=== PATIENT | male | born 1975 | race Caucasian/White ===

== ENCOUNTER 2017-10-02 11:28 | Emergency (ER) | payer BC, OTHER ==
[~2017-10-02 11:28] MED LIST: CYCL-36 PO; LORT7.5T3 PO; SIMV5TAB32 PO
[2017-10-02 11:36] VITALS: BP 145/93; PULSE 93; RESP 18; TEMP 98.7; O2SAT 100
[2017-10-02] MEDS ORDERED: SODIUM CHLOR 0.9% 1000 ML INJ 1,000 ML IV SCH (11:55)
[2017-10-02] MEDS ORDERED: TETANUS/DIPHTHERIA TOXOID ADULT 0.5 ML VIAL IM ONE (12:00)
[2017-10-02] MEDS ORDERED: SODIUM CHLORIDE 0.9% FLUSH 10 ML FLUSH IV FLUSH PRN (12:00)
[2017-10-02] MEDS ORDERED: KETOROLAC TROMETHAMINE 30 MG/ML (IVP) VIAL IVP ONE (12:00)
[2017-10-02] MEDS ORDERED: PIPERACIL-TAZO 3.375 GM PREMIX 50 ML IV ONE (12:00)
[2017-10-02] MEDS ORDERED: IBUP1TAB7 PO (12:00)
[2017-10-02] MEDS ORDERED: AUGM875T3 PO (12:00)
--- NOTE | 2017-10-02 12:02 | PD ---
HPI Chief Complaint: Bite or Sting Time Seen by Provider: 11:45 Travel History International Travel<30 days: No Contact w/Intl Traveler<30days: No Traveled to known affect area: No History of Present Illness HPI 42-year-old male presents to the emergency department with complaint of a Bite to his right thumb that occurred 2 days ago. It was his girlfriend's cat and they are up-to-date on their vaccinations. He reports swelling and decreased range of motion of the thumb. Denies fever, vomiting. Denies paresthesias, loss of sensation to to the thumb or other fingers of the right hand. Has been applying topical antibiotic ointment and taking Tylenol for symptom management. Tetanus status unknown. Rates pain 4/10. Aggravated with movement and palpation. No known relieving factors. Primary care provider is the [facility]. Allergies to Imitrex. Denies significant past medical history. Has no other medical complaints. No other modifying factors or associated signs and symptoms. PFSH Past Medical History High Cholesterol: Yes Herniated Disk: Yes ("BULGING"--NOT SURE WHERE) Psychiatric: Yes (bipolar) Tetanus Vaccination: > 5 Years Social History Alcohol Use: Yes (rare) Tobacco Use: No Substance Use: No Allergies-Medications (Allergen,Severity, Reaction): Coded Allergies: sumatriptan (Unverified Allergy, Severe, 01/28/17) Reported Meds & Prescriptions Reported Meds & Active Scripts Active Ibuprofen 800 Mg Tab 800 Mg PO Q6HR PRN Augmentin (Amoxicillin-Clavulanate) 875-125 Mg Tab 1 Tab PO BID 10 Days Flexeril (Cyclobenzaprine HCl) 10 Mg Tab 10 Mg PO TID Lortab 7.5/500 (Acetaminophen/Hydrocodone Bitart) Tab 1 Tab PO Q6HPRN FOR PAIN Reported Zocor (Simvastatin) 5 Mg Tab 0 PO DAILY UNKNOWN DOSE Review of Systems Except as stated in HPI: all other systems reviewed are Neg Physical Exam Narrative GENERAL: Well-nourished, well-developed male patient, in no acute distress; afebrile, nontoxic-appearing SKIN: Warm and dry. Right thumb is edematous in between the MCP and DIP joint of the thumb; multiple bite cabello noted; very minimal erythema and without drainage from the bite cabello; with minimal range of motion at the MCP joint and DIP joint; no signs of tenosynovitis. No lymphangitis. Right upper extremity is supple and nontender with 2+ radial pulse and sensory intact without erythema or edema. HEAD: Atraumatic. Normocephalic. EYES: Pupils equal and round. No scleral icterus. No injection or drainage. ENT: Mucosa pink and moist. Airway patent. NECK: Trachea midline. CARDIOVASCULAR: Regular rate. RESPIRATORY: No accessory muscle use. GASTROINTESTINAL: Flat. MUSCULOSKELETAL: No obvious deformities. No clubbing. No cyanosis. No edema. NEUROLOGICAL: Awake and alert. Oriented 3. No obvious cranial nerve deficits. Motor grossly within normal limits. Normal speech. PSYCHIATRIC: Appropriate mood and affect; insight and judgment normal. Data Data Last Documented VS Vital Signs Date Time Temp Pulse Resp B/P (MAP) Pulse Ox O2 Delivery O2 Flow Rate FiO2 10/02/17 11:36 98.7 93 18 145/93 (110) 100 Orders Orders Tetanus/Diphtheria Tox Adult (Tetanus/Di (10/02/17 12:00) Piperacil-Tazo 3.375 Gm Premix (Zosyn 3. (10/02/17 12:00) Sodium Chlor 0.9% 1000 Ml Inj (Ns 1000 M (10/02/17 11:55) Sodium Chloride 0.9% Flush (Ns Flush) (10/02/17 12:00) Ketorolac Inj (Toradol Inj) (10/02/17 12:00) Hand, Complete ([id number]) (10/02/17 11:55) Ed Discharge Order (10/02/17 14:40) MDM Medical Decision Making Medical Screen Exam Complete: Yes Emergency Medical Condition: Yes Medical Record Reviewed: Yes Differential Diagnosis Infected cat bite wounds, puncture wounds, tenosynovitis, osteomyelitis Narrative Course 42-year-old male with Bite to his right thumb. Tetanus updated in the ER. No signs of tenosynovitis. No lymphangitis. Patient is afebrile and nontoxic- appearing. Denies fever, vomiting. I discussed exam findings with Dr. Macias and he agrees with my plan of care. IV and IV Unasyn, and Toradol ordered. 1439: Hand X-Ray 10/02/17 1155 Signed Impressions: Service Date/Time: September 12:10 - CONCLUSION: Mild soft tissue swelling of the thumb. There is no radiopaque foreign body or osseous abnormality identified. Luan Chairez MD Discussed x-ray findings with the patient. Augmentin and ibuprofen prescribed for home. Instructed patient to follow up with primary care provider. Patient verbalizes understanding and agreement with treatment plan. Patient is medically cleared and stable for discharge. Discussed reasons to return to the emergency department. Patient agrees with treatment plan. The patients vital signs are stable and the patient is stable for outpatient follow-up and treatment. Patient discharged home, stable and in no acute distress. Diagnosis Primary Impression: Cat bite of right thumb with infection Qualified Codes: S61.051A - Open bite of right thumb without damage to nail, initial encounter; L08.9 - Local infection of the skin and subcutaneous tissue, unspecified; W55.01XA - Bitten by cat, initial encounter Referrals: Primary Care Physician Patient Instructions: Animal Bite (ED), General Instructions Departure Forms: Tests/Procedures, Work Release Enter return to work date: Oct 04, 2017 Additional Instructions: Topical antibiotic ointment as directed and as needed for wound care Antibiotics as prescribed and complete full course Keep area clean and dry Ice as needed to affected area to decrease pain and inflammation Follow-up with primary care provider Return to the emergency department immediately with worsening of symptoms Med/Other Pt SpecificInfo: Prescription(s) given Scripts Ibuprofen (Ibuprofen) 800 Mg Tab 800 MG PO Q6HR Y for PAIN, #30 TAB 0 Refills Prov: Fatemeh Martinez 10/02/17 Amoxicillin-Clavulanate (Augmentin) 875-125 Mg Tab 1 TAB PO BID for Infection for 10 Days, #20 TAB 0 Refills Prov: Fatemeh Martinez 10/02/17 Disposition: 01 DISCHARGE HOME Condition: Stable Fatemeh Martinez Oct 02, 2017 12:01
--- NOTE | 2017-10-02 12:25 | RADRPT ---
EXAM DATE/TIME: 10/02/2017 12:10 [facility] COMPARISON: No previous studies available for comparison. INDICATIONS : Right thumb pain and inflammation after cat bite. MEDICAL HISTORY : None. SURGICAL HISTORY : None. ENCOUNTER: Initial ACUITY: 1 day PAIN SCORE: 4/10 LOCATION: Right thumb FINDINGS: 3 views of the right hand demonstrate no fracture or dislocation. Mineralization is within normal bragg its and there is no significant arthropathy. The bones demonstrate no erosion or periosteal reaction. No radiopaque foreign body is identified. There is mild soft tissue swelling of the thumb. CONCLUSION: Mild soft tissue swelling of the thumb. There is no radiopaque foreign body or osseous abnormality id entified. Luan Chairez MD on October 02, 2017 at 12:23 Board Certified Radiologist. This report was verified electronically.
== END 2017-10-02 15:29 | disposition home or self-care (01) ==
LOC: NEPD 11:28
DX: S61.051A Open bite of right thumb without damage to nail, initial encounter (principal); L08.9 Local infection of the skin and subcutaneous tissue, unspecified; W55.01XA Bitten by cat, initial encounter; Z23 Encounter for immunization; E78.00 Pure hypercholesterolemia, unspecified; Z88.8 Allergy status to other drugs, medicaments and biological substances; Z79.899 Other long term (current) drug therapy
CPT/HCPCS: 73130; 90471; 90714; 96374; 96375; 99284; J1885; J2543; J7030; 96372

== ENCOUNTER 2018-03-24 16:08 | Observation (INO) ==
--- NOTE | 2018-03-24 16:37 | ED ---
HPI General Chief Complaint: Overdose Stated Complaint: Poss OD Time Seen by Provider: 03/24/18 16:19 Source: patient and EMS Mode of arrival: EMS Limitations: no limitations History of Present Illness HPI Narrative: The patient is a 43-year-old male with strep bipolar disorder that was brought in by EMS for possible overdose in an attempt to commit suicide. Patient states that around 1 PM today he ingested 20 to 30 sleeping 8 pills of doxylamine succinate complaint: Reports intentional overdose Onset (ago): hour(s) (3) Intent: suicide attempt How Overdose Was Discovered: called 911 Treatments Prior to Arrival: none Related Data Home Medications Medication Instructions Recorded Confirmed bupropion HCl [Wellbutrin XL] See Label Instructions .ROUTE 03/24/18 03/24/18 .COMPLEX lurasidone [Latuda] See Label Instructions .ROUTE 03/24/18 03/24/18 .COMPLEX Allergies Allergy/AdvReac Type Severity Reaction Status Date / Time sumatriptan Allergy Severe Rash Unverified 03/24/18 16:22 Review of Systems ROS: all other systems reviewed are negative [facility] Medical History Medical History Anxiety (Acute) Bipolar 1 disorder (Acute) Surgical History Surgical History History of back surgery (Acute) Family History Family History Other Coronary artery disease Social History Social History Substance History: No History of Abuse Second Hand Smoke Exposure: No Smoking Status: Never smoker How Often Do You Have a Drink Containing Alcohol: Monthly or less Recent Travel in [facility] within the Last 8 Weeks: No Recent Out of Country Travel within the Last 8 Weeks: No Immunization History Tetanus Immunization: <5 Years Exam Narrative Exam Narrative: GENERAL: Alert and oriented in no distress SKIN: Focused skin assessment warm/dry. HEAD: Atraumatic. Normocephalic. EYES: Pupils equal and round. No scleral icterus. No injection or drainage. ENT: No nasal bleeding or discharge. Mucous membranes pink and moist. NECK: Trachea midline. No JVD. CARDIOVASCULAR: Regular rate and rhythm. No murmur appreciated. RESPIRATORY: No accessory muscle use. Clear to auscultation. Breath sounds equal bilaterally. GASTROINTESTINAL: Abdomen soft, non-tender, nondistended. Hepatic and splenic margins not palpable. MUSCULOSKELETAL: No obvious deformities. No clubbing. No cyanosis. No edema. NEUROLOGICAL: Awake and alert. No obvious cranial nerve deficits. Motor grossly within normal limits. Normal speech. PSYCHIATRIC: Withdrawn flat affect suicidal ideation none homicidal. No hallucinations. Course Hospital Course: Patient with doxylamine overdose Poison Control Center was contacted and recommends supportive care and monitoring for at least 8 hours. Patient was placed under Holland act and will be admitted medically with psych consultation. Reevaluation(s) Reevaluation #1: Patient is resting comfortably no distress at this time cooperative. Time: 17:00 Reevaluation #2: Resting comfortably no distress Time: 19:00 Initial Documented Vital Signs Temperature 97.8 F 03/24/18 16:18 Pulse Rate 98 H 03/24/18 16:18 Respiratory Rate 18 03/24/18 16:18 Blood Pressure 144/88 H 03/24/18 16:18 Pulse Oximetry 99 03/24/18 16:18 Last Documented Vital Signs Temperature 97.8 F 03/24/18 16:18 Pulse Rate 66 03/25/18 04:00 Respiratory Rate 16 03/24/18 23:26 Blood Pressure 135/86 03/24/18 23:26 Pulse Oximetry 99 03/24/18 23:26 Critical Care Time Critical Care Time: Yes Total Critical Care Time: 30 Attestation: Aggregate critical care time was 30 minutes. Time to perform other separately billable procedures was not included in the critical care time. My time did not include minutes spent treating any other patients simultaneously or on activities that did not directly contribute to the patient's treatment. The services I provided to this patient were to treat and/or prevent clinically significant deterioration that could result in: I provided critical care services requiring my management, as noted below: Chart data review, documentation time, medication orders and management, vital sign assessments/reviewing monitor data, ordering and reviewing lab tests, ordering and interpreting/reviewing x-rays and diagnostic studies, care of the patient and discussion of the patient with the admitting physicians. Medical Decision Making MDM Narrative Medical decision making narrative: Patient with Holland act secondary to suicide attempt with sleeping pills. Will monitor for at least 8 hours and then have him evaluated by psych. Hemodynamically stable. No somnolence. EKG unremarkable. Medical Screen Exam Complete: Yes Emergency Medical Condition: Yes Lab Data Lab results reviewed: Yes I reviewed the patient's lab results. Result diagrams: 03/25/18 05:25 03/24/18 16:26 Lab Results 03/24/18 03/24/18 03/24/18 Range/Units 16:26 16:26 16:26 WBC 9.3 (4.0-11.0) th/mm3 RBC 5.37 (4.50-5.90) mil/mm3 Hgb 15.1 (13.0-17.0) gm/dL Hct 43.9 (39.0-51.0) % MCV 81.7 (80.0-100.0) fL MCH 28.1 (27.0-34.0) pg MCHC 34.4 (32.0-36.0) % RDW 14.5 (11.6-17.2) % Plt Count 314 (150-450) th/mm3 MPV 8.4 (7.0-11.0) fL Prelim Diff (Auto) Slide review pending Neut % (Auto) 65.2 (16.0-70.0) % Lymph % (Auto) 26.6 (9.0-44.0) % [place] % (Auto) 4.5 (0.0-8.0) % Eos % (Auto) 2.2 (0.0-4.0) % Baso % (Auto) 1.5 (0.0-2.0) % Neut # (Auto) 6.1 (1.8-7.7) th/mm3 Lymph # (Auto) 2.5 (1.0-4.8) th/mm3 [place] # (Auto) 0.4 (0.0-0.9) th/mm3 Eos # (Auto) 0.2 (0.0-0.4) th/mm3 Baso # (Auto) 0.1 (0.0-0.2) th/mm3 WBC Differential . Diff Scan Auto diff confirmed Differential Comment . Sodium 138 (136-145) meq/L Potassium 3.8 (3.5-5.1) meq/L Chloride 103 (98-107) meq/L Carbon Dioxide 25.4 (21.0-32.0) meq/L Anion Gap 10 (5-15) meq/L BUN 7 (7-18) mg/dL Creatinine 1.13 (0.60-1.30) mg/dL Estimated GFR 71 L (>89) mL/min Random Glucose 92 (74-106) mg/dL Calcium 9.5 (8.5-10.1) mg/dL Total Bilirubin 0.3 (0.2-1.0) mg/dL AST 25 (15-37) U/L ALT 30 (12-78) U/L Alkaline Phosphatase 99 (45-117) U/L Total Creatine Kinase 121 (39-308) U/L Total Protein 7.5 (6.4-8.2) g/dL Albumin 3.9 (3.4-5.0) g/dL TSH 0.247 L (0.358-3.740) uIU/mL Salicylates Less than 1.7 L (2.8-20.0) mg/dL Urine Opiates Screen (Neg) Acetaminophen Less than 2.0 L (10.0-30.0) mcg/mL Ur Barbiturates Screen (Neg) Ur Amphetamines Screen (Neg) U Benzodiazepines Scrn (Neg) Urine Cocaine Screen (Neg) U Cannabinoids Screen (Neg) Serum Alcohol Less than 3 (0-5) mg/dL 03/24/18 03/25/18 Range/Units 16:26 05:25 WBC 9.4 (4.0-11.0) th/mm3 RBC 5.11 (4.50-5.90) mil/mm3 Hgb 14.3 (13.0-17.0) gm/dL Hct 42.1 (39.0-51.0) % MCV 82.3 (80.0-100.0) fL MCH 27.9 (27.0-34.0) pg MCHC 33.9 (32.0-36.0) % RDW 14.8 (11.6-17.2) % Plt Count 299 (150-450) th/mm3 MPV 7.9 (7.0-11.0) fL Prelim Diff (Auto) Neut % (Auto) 52.3 (16.0-70.0) % Lymph % (Auto) 39.4 (9.0-44.0) % [place] % (Auto) 4.4 (0.0-8.0) % Eos % (Auto) 3.1 (0.0-4.0) % Baso % (Auto) 0.8 (0.0-2.0) % Neut # (Auto) 4.9 (1.8-7.7) th/mm3 Lymph # (Auto) 3.7 (1.0-4.8) th/mm3 [place] # (Auto) 0.4 (0.0-0.9) th/mm3 Eos # (Auto) 0.3 (0.0-0.4) th/mm3 Baso # (Auto) 0.1 (0.0-0.2) th/mm3 WBC Differential . Diff Scan Differential Comment Auto diff final Sodium (136-145) meq/L Potassium (3.5-5.1) meq/L Chloride (98-107) meq/L Carbon Dioxide (21.0-32.0) meq/L Anion Gap (5-15) meq/L BUN (7-18) mg/dL Creatinine (0.60-1.30) mg/dL Estimated GFR (>89) mL/min Random Glucose (74-106) mg/dL Calcium (8.5-10.1) mg/dL Total Bilirubin (0.2-1.0) mg/dL AST (15-37) U/L ALT (12-78) U/L Alkaline Phosphatase (45-117) U/L Total Creatine Kinase (39-308) U/L Total Protein (6.4-8.2) g/dL Albumin (3.4-5.0) g/dL TSH (0.358-3.740) uIU/mL Salicylates (2.8-20.0) mg/dL Urine Opiates Screen Neg (Neg) Acetaminophen (10.0-30.0) mcg/mL Ur Barbiturates Screen Neg (Neg) Ur Amphetamines Screen Neg (Neg) U Benzodiazepines Scrn Neg (Neg) Urine Cocaine Screen Neg (Neg) U Cannabinoids Screen Neg (Neg) Serum Alcohol (0-5) mg/dL Imaging Data Radiologist's impression: Chest X-Ray 03/24/18 16:20 CONCLUSION: No acute cardiopulmonary disease. Discharge Plan Discharge Disposition Patient Disposition: 30 Still Patient Discharge Condition Condition: Stable Discharge Details Diagnosis: Drug overdose, Suicide attempt Physicians Team ED Provider: Pawan Alatorre Primary Care Provider: [facility] Attending Provider: Sebastien Domínguez Other Providers: Jason Centeno Status ED Status: Left Department Discharge Information Discharge Date/Time: 03/24/18 22:40
--- NOTE | 2018-03-24 16:55 | XR ---
EXAM DATE: 03/24/2018 4:20 PM EDT AGE/SEX: 43 years / Male INDICATIONS: Short of breath. CLINICAL DATA: This is the patient's initial encounter. Patient reports that signs and symptoms have been present for 1 day and indicates a pain score of 0/10. MEDICAL/SURGICAL HISTORY: None. None. COMPARISON: No prior exams available for comparison. FINDINGS: A single AP view of the chest demonstrates the lungs to be symmetrically aerated without evidence of mass, infiltrate or effusion. The cardiomediastinal contours are unremarkable. Osseous structures a re intact. CONCLUSION: No acute cardiopulmonary disease. Electronically signed by: En Park MD 03/24/2018 4:53 PM EDT
[2018-03-24 16:57] LABS: Amphetamine Screen,Urine Neg (Neg); Barbiturate Screen,Urine Neg (Neg); Cannabinoid Screen,Urine Neg (Neg); Cocaine Screen,Urine Neg (Neg)
[2018-03-24 17:01] LABS: Opiate Screen,Urine Neg (Neg)
[2018-03-24 17:05] LABS: Baso # (Auto) 0.1 th/mm3 (0.0-0.2); Baso % (Auto) 1.5 % (0.0-2.0); Eos # (Auto) 0.2 th/mm3 (0.0-0.4); Eos % (Auto) 2.2 % (0.0-4.0); Hematocrit 43.9 % (39.0-51.0); Hemoglobin 15.1 gm/dL (13.0-17.0); Lymph # (Auto) 2.5 th/mm3 (1.0-4.8); Lymph % (Auto) 26.6 % (9.0-44.0); Mean Corpuscular HGB Conc 34.4 % (32.0-36.0); Mean Corpuscular Hemoglobin 28.1 pg (27.0-34.0); Mean Corpuscular Volume 81.7 fL (80.0-100.0); Mean Platelet Volume 8.4 fL (7.0-11.0); Mono # (Auto) 0.4 th/mm3 (0.0-0.9); Mono % (Auto) 4.5 % (0.0-8.0); Neut # (Auto) 6.1 th/mm3 (1.8-7.7); Neut % (Auto) 65.2 % (16.0-70.0); Platelet Count 314 th/mm3 (150-450); Red Blood Count 5.37 mil/mm3 (4.50-5.90); Red Cell Distribution Width 14.5 % (11.6-17.2); White Blood Count 9.3 th/mm3 (4.0-11.0)
[2018-03-24 17:16] LABS: Alanine Aminotransferase 30 U/L (12-78)
[2018-03-24 17:17] LABS: Albumin 3.9 g/dL (3.4-5.0); Anion Gap 10 meq/L (5-15); Aspartate Aminotransferase 25 U/L (15-37); Blood Urea Nitrogen 7 mg/dL (7-18); Calcium 9.5 mg/dL (8.5-10.1); Carbon Dioxide 25.4 meq/L (21.0-32.0); Chloride 103 meq/L (98-107); Glomerular Filtration Rate 71 mL/min (>89); Glucose,Random 92 mg/dL (74-106); Potassium 3.8 meq/L (3.5-5.1); Sodium 138 meq/L (136-145)
[2018-03-24 17:26] LABS: Alkaline Phosphatase 99 U/L (45-117); Creatine Kinase 121 U/L (39-308); Thyroid Stimulating Hormone 0.247 uIU/mL (0.358-3.740); Total Protein 7.5 g/dL (6.4-8.2)
[2018-03-24] MEDS ORDERED: Bisacodyl 10 MG Supp RECTAL PRN (19:56)
--- NOTE | 2018-03-24 20:03 | P.HP ---
History of Present Illness Service: [facility] Primary Care Physician: [facility] History of Present Illness: 43-year-old male with a past medical history significant for bipolar disorder and 2 previous suicide attempts in the past reports to the emergency department for the evaluation of an intentional overdose. The patient reports that he has been depressed for several days now. He reports a psychotic episode on where he thought he was talking to his best friend and his girlfriend however they were not there. He states he has had psychotic episodes in the past. He is supposed to be on bipolar medication however has not taken any in 2 weeks. He cannot remember the name of his psychiatrist. The patient states he had been feeling depressed and took 20-30 [id number] sleeping pills ( doxylamine succinate) with the intention of not waking up. He denies any chest pain or shortness of breath. No abdominal pain. No nausea/vomiting/diarrhea. No fever/chills. The patient reports he would still like to . Review of Systems All other systems reviewed negative except as stated in HPI [facility] - History History Provided By: Patient - Medical History Medical History: Medical History (Last Reviewed 03/24/18 @ 19:59 by Elodia Durham MD) Anxiety Bipolar 1 disorder - Surgical History Surgical History: Surgical History (Last Updated 03/24/18 @ 20:00 by Elodia Durham MD) History of back surgery - Family History Family History: Family History (Last Updated 03/24/18 @ 20:00 by Elodia Durham MD) Other Coronary artery disease - Tobacco History Second Hand Smoke Exposure: No Tobacco Use In Past 30 Days: No Smoking Status: Never smoker - Alcohol History How Often Do You Have a Drink Containing Alcohol: 2 to 4 times a month - Substance Use History Substance History: No History of Abuse - Travel History Recent Travel in the [place] Within the Last 8 Weeks: No Recent Travel Out of the Country Within the Last 8 Weeks: No - Immunization History Tetanus Immunization: <5 Years Medications and Allergies Active Medications: Active Medications Bisacodyl (Dulcolax Supp) 10 mg RECTAL DAILY PRN PRN Reason: SEVERE CONSITIPATION Lactulose (Lactulose Liq) 30 ml PO DAILY PRN PRN Reason: SEVERE CONSITIPATION Allergies Allergy/AdvReac Type Severity Reaction Status Date / Time sumatriptan Allergy Severe Rash Unverified 10/09/18 16:22 Exam Vital signs: Vital Signs 03/24/18 16:18 03/24/18 19:14 Temperature 97.8 F Pulse Rate 98 H 82 Respiratory Rate 18 16 Blood Pressure 144/88 H 143/89 H Pulse Oximetry 99 98 Intake & Output 03/24/18 03/24/18 03/25/18 06:59 18:59 06:59 Weight 74.843 kg Narrative: Gen.: No acute distress Head: Normocephalic. Atraumatic. EENT: Pupils equal round and reactive to light. Nose without drainage. Airway intact. Throat without injection. Cardiovascular: Regular rate and rhythm. No murmurs, rubs or gallops. Respiratory: Lungs clear to auscultation bilaterally. No wheezes or rhonchi. Abdomen: Soft, nontender, nondistended. No peritoneal signs. Musculoskeletal: No gross deformities. No edema. Skin: No obvious rashes or erythema. Neuro: Sensory and motor grossly intact. Cranial nerves II through XII grossly intact. Results - Labs CBC & Chem 7: 03/24/18 16:26 03/24/18 16:26 Labs: Laboratory Results - last 24 hr 03/24/18 03/24/18 03/24/18 16:26 16:26 16:26 WBC 9.3 RBC 5.37 Hgb 15.1 Hct 43.9 MCV 81.7 MCH 28.1 MCHC 34.4 RDW 14.5 Plt Count 314 MPV 8.4 Prelim Diff (Auto) Slide review pending Neut % (Auto) 65.2 Lymph % (Auto) 26.6 [place] % (Auto) 4.5 Eos % (Auto) 2.2 Baso % (Auto) 1.5 Neut # (Auto) 6.1 Lymph # (Auto) 2.5 [place] # (Auto) 0.4 Eos # (Auto) 0.2 Baso # (Auto) 0.1 WBC Differential . Diff Scan Auto diff confirmed Differential Comment . Sodium 138 Potassium 3.8 Chloride 103 Carbon Dioxide 25.4 Anion Gap 10 BUN 7 Creatinine 1.13 Estimated GFR 71 L Random Glucose 92 Calcium 9.5 Total Bilirubin 0.3 AST 25 ALT 30 Alkaline Phosphatase 99 Total Creatine Kinase 121 Total Protein 7.5 Albumin 3.9 TSH 0.247 L Salicylates Less than 1.7 L Urine Opiates Screen Acetaminophen Less than 2.0 L Ur Barbiturates Screen Ur Amphetamines Screen U Benzodiazepines Scrn Urine Cocaine Screen U Cannabinoids Screen Serum Alcohol Less than 3 03/24/18 16:26 WBC RBC Hgb Hct MCV MCH MCHC RDW Plt Count MPV Prelim Diff (Auto) Neut % (Auto) Lymph % (Auto) [place] % (Auto) Eos % (Auto) Baso % (Auto) Neut # (Auto) Lymph # (Auto) [place] # (Auto) Eos # (Auto) Baso # (Auto) WBC Differential Diff Scan Differential Comment Sodium Potassium Chloride Carbon Dioxide Anion Gap BUN Creatinine Estimated GFR Random Glucose Calcium Total Bilirubin AST ALT Alkaline Phosphatase Total Creatine Kinase Total Protein Albumin TSH Salicylates Urine Opiates Screen Neg Acetaminophen Ur Barbiturates Screen Neg Ur Amphetamines Screen Neg U Benzodiazepines Scrn Neg Urine Cocaine Screen Neg U Cannabinoids Screen Neg Serum Alcohol - Imaging Impressions Chest X-Ray 03/24/18 16:20 CONCLUSION: No acute cardiopulmonary disease. Caprini VTE Risk Assessment Caprini VTE Risk Assessment: No/Low Risk (score <= 1) Caprini Risk Assessment Model: Point Value = 1 Point Value = 2 Point Value = 3 Point Value = 5 Age 41-60 Minor surgery BMI > 25 kg/m2 Swollen legs Varicose veins or History of unexplained or recurrent spontaneous Oral contraceptives or hormone replacement Sepsis (< 1 month) Serious lung disease, including pneumonia (< 1 month) Abnormal pulmonary function Acute myocardial infarction Congestive heart failure (< 1 month) History of inflammatory bowel disease Medical patient at bed rest Age 61-74 Arthroscopic surgery Major open surgery (> 45 min) Laparoscopic surgery (> 45 min) Malignancy Confined to bed (> 72 hours) Immobilizing plaster cast Central venous access Age >= 75 History of VTE Family history of VTE Factor V Leiden Prothrombin [id number] Lupus anticoagulant Anticardiolipin antibodies Elevated serum homocysteine Heparin-induced thrombocytopenia Other congenital or acquired thrombophilia Stroke (< 1 month) Elective arthroplasty Hip, pelvis, or leg fracture Acute spinal cord injury (< 1 month) Prophylaxis Regimen: Total Risk Factor Score Risk Level Prophylaxis Regimen 0-1 Low Early ambulation 2 Moderate Order ONE of the following: *Sequential Compression Device (SCD) *Heparin 5000 units SQ BID 3-4 Higher Order ONE of the following medications: *Heparin 5000 units SQ TID *Enoxaparin/Lovenox 40 mg SQ daily (WT < 150 kg, CrCl > 30 mL/min) *Enoxaparin/Lovenox 30 mg SQ daily (WT < 150 kg, CrCl > 10-29 mL/min) *Enoxaparin/Lovenox 30 mg SQ BID (WT < 150 kg, CrCl > 30 mL/min) AND/OR *Sequential Compression Device (SCD) 5 or more Highest Order ONE of the following medications: *Heparin 5000 units SQ TID (Preferred with Epidurals) *Enoxaparin/Lovenox 40 mg SQ daily (WT < 150 kg, CrCl > 30 mL/min) *Enoxaparin/Lovenox 30 mg SQ daily (WT < 150 kg, CrCl > 10-29 mL/min) *Enoxaparin/Lovenox 30 mg SQ BID (WT < 150 kg, CrCl > 30 mL/min) AND *Sequential Compression Device (SCD) Assessment and Plan - Plan Assessment/plan: 1. Intentional overdose/suicidal ideation/hallucinations Patient with known history of bipolar disorder, not currently taking his medications Poison control contacted for doxylamine overdose, recommend monitoring and supportive care [facility] Psychiatry consulted, appreciate recommendations Patient remains actively suicidal at this time 2. Bipolar disorder Appreciate psychiatry recommendations FEN Regular diet Electrolytes: Monitor and replete as needed
[2018-03-24] MEDS: Senna/Docusate Sodium 8.6/50 MG Tablet PO SCH (22:01)
[2018-03-25 06:24] LABS: Baso # (Auto) 0.1 th/mm3 (0.0-0.2); Baso % (Auto) 0.8 % (0.0-2.0); Eos # (Auto) 0.3 th/mm3 (0.0-0.4); Eos % (Auto) 3.1 % (0.0-4.0); Hematocrit 42.1 % (39.0-51.0); Hemoglobin 14.3 gm/dL (13.0-17.0); Lymph # (Auto) 3.7 th/mm3 (1.0-4.8); Lymph % (Auto) 39.4 % (9.0-44.0); Mean Corpuscular HGB Conc 33.9 % (32.0-36.0); Mean Corpuscular Hemoglobin 27.9 pg (27.0-34.0); Mean Corpuscular Volume 82.3 fL (80.0-100.0); Mean Platelet Volume 7.9 fL (7.0-11.0); Mono # (Auto) 0.4 th/mm3 (0.0-0.9); Mono % (Auto) 4.4 % (0.0-8.0); Neut # (Auto) 4.9 th/mm3 (1.8-7.7); Neut % (Auto) 52.3 % (16.0-70.0); Platelet Count 299 th/mm3 (150-450); Red Blood Count 5.11 mil/mm3 (4.50-5.90); Red Cell Distribution Width 14.8 % (11.6-17.2); White Blood Count 9.4 th/mm3 (4.0-11.0)
[2018-03-25 07:22] LABS: Alanine Aminotransferase 26 U/L (12-78); Albumin 3.5 g/dL (3.4-5.0); Alkaline Phosphatase 95 U/L (45-117); Anion Gap 9 meq/L (5-15); Aspartate Aminotransferase 17 U/L (15-37); Blood Urea Nitrogen 9 mg/dL (7-18); Calcium 8.5 mg/dL (8.5-10.1); Carbon Dioxide 29.9 meq/L (21.0-32.0); Chloride 103 meq/L (98-107); Glomerular Filtration Rate 69 mL/min (>89); Glucose,Random 80 mg/dL (74-106); Potassium 3.6 meq/L (3.5-5.1); Sodium 142 meq/L (136-145); Total Protein 6.9 g/dL (6.4-8.2)
[2018-03-25] MEDS: Senna/Docusate Sodium 8.6/50 MG Tablet PO SCH (09:45)
--- NOTE | 2018-03-25 10:53 | P.CONPSY ---
Provisional Diagnosis Admission Date: March 24, 2018 19:19 [place] I.: Bipolar disorder, depressive episode [place] II.: Deferred History of Present Illness Service: ER Primary Care Provider: [facility] Family Provider: [facility] History of Present Illness: The patient is 43-year-old man, domiciled with girlfriend in [place], employed in a warehouse, no kids, , no service connected, psychiatric history of bipolar disorder, PTSD, 2 previous psychiatric hospitalizations, 2 previous suicidal attempts, patient is a Wellbutrin and Latuda, does not know the dose, prescribed by [facility], he is noncompliant with medications, no significant medical history, who reports to the emergency department for the evaluation of an intentional overdose with suicidal intention. The patient reports that he has been depressed for several days now in the context of multiple problems including losing his job, separation from his girlfriend, economical burden. He reports a psychotic episode on where he thought he was talking to his best friend and his girlfriend however they were not there. He states he has had psychotic episodes in the past. He denies psychosis at the moment, he denies visual and auditory hallucinations right now. He is supposed to be on bipolar medication however has not taken any in 2 weeks. The patient states he had been feeling depressed and took 20-30 over-the -counter sleeping pills (doxylamine succinate) with the intention of not waking up. He reports an increased sense of anhedonia, hopelessness, helplessness, worthlessness, lack of enjoyment, persistent suicidal thoughts. He also reports daytime and nighttime anxiety with consequence insomnia. He is fully oriented x3. No attention deficit, no fluctuation of consciousness. PPHx: psychiatric history of bipolar disorder, PTSD, 2 previous psychiatric hospitalizations, 2 previous suicidal attempts, patient is a Wellbutrin and Latuda, does not know the dose, prescribed by [facility], he is noncompliant with medications PMHx: no significant medical history Family Hx: No family psychiatric history Substance Hx: Denies the use of illegal drugs or alcohol Social Hx: The patient was born and raised in [place], he lives in [place] with his girlfriend, employed in a warehouse, no kids, he is a , he is not service-connected, his highest level is 2 years college Review of Systems All other systems reviewed negative except as stated in HPI Psychiatric: Reports abnormal sleep pattern, Reports anxiety, Reports change in appetite, Reports change in sex drive, Reports depression, Reports hopelessness , Reports irritability, Reports lack of enjoyment, Reports thoughts of hurting/ killing yourself [facility] - History History Provided By: Patient - Medical History Medical History: Medical History (Last Reviewed 03/24/18 @ 19:59 by Elodia Durham MD) Anxiety Bipolar 1 disorder - Surgical History Surgical History: Surgical History (Last Updated 03/24/18 @ 20:00 by Elodia Durham MD) History of back surgery - Family History Family History: Family History (Last Updated 03/24/18 @ 20:00 by Elodia Durham MD) Other Coronary artery disease - Tobacco History Second Hand Smoke Exposure: No Tobacco Use In Past 30 Days: No Smoking Status: Never smoker - Alcohol History How Often Do You Have a Drink Containing Alcohol: Monthly or less - Substance Use History Substance History: No History of Abuse - Travel History Recent Travel in the [place] Within the Last 8 Weeks: No Recent Travel Out of the Country Within the Last 8 Weeks: No - Immunization History Tetanus Immunization: <5 Years Medications and Allergies Active Medications: Active Medications Al Hydroxide/Mg Hydroxide (Milk Of Magnesia Liq) 30 ml PO Q12H PRN PRN Reason: Mild Constipation Bisacodyl (Dulcolax Supp) 10 mg RECTAL DAILY PRN PRN Reason: SEVERE CONSITIPATION Lactulose (Lactulose Liq) 30 ml PO DAILY PRN PRN Reason: SEVERE CONSITIPATION Ondansetron HCl (Zofran Inj) 4 mg IV.PUSH Q6H PRN PRN Reason: NAUSEA OR VOMITING Senna/Docusate Sodium (Joyce-Colace) 1 tab PO BID NANCI Last Admin: 03/25/18 09:45 Dose: Not Given Sennosides (Senokot) 17.2 mg PO Q12H PRN PRN Reason: Moderate Constipation Allergies Allergy/AdvReac Type Severity Reaction Status Date / Time sumatriptan AdvReac Intermediate Headache Verified 03/25/18 09:46 Home Medications Medication Instructions Recorded Confirmed Type bupropion HCl [Wellbutrin XL] See Label Instructions .ROUTE 03/24/18 03/24/18 History .COMPLEX lurasidone [Latuda] See Label Instructions .ROUTE 03/24/18 03/24/18 History .COMPLEX Exam Vital signs: Vital Signs 03/24/18 16:18 03/24/18 19:14 03/24/18 21:57 Temperature 97.8 F Pulse Rate 98 H 82 78 Respiratory Rate 18 16 16 Blood Pressure 144/88 H 143/89 H 143/91 H Pulse Oximetry 99 98 99 03/24/18 23:26 03/25/18 00:00 03/25/18 04:00 Temperature Pulse Rate 71 73 66 Respiratory Rate 16 Blood Pressure 135/86 Pulse Oximetry 99 03/25/18 07:47 Temperature 98.3 F Pulse Rate 72 Respiratory Rate 16 Blood Pressure 127/83 Pulse Oximetry 99 Intake & Output 03/24/18 03/25/18 03/25/18 18:59 06:59 18:59 Output Total 300 / 300 Balance -300 / -300 Weight 74.843 kg 74.389 kg Output: Urine 300 / 300 Other: Date of Last Bowel Movement 03/23/18 03/24/18 Narrative: No tremors, no stiffness, no EPS, no withdrawal symptoms, no psychomotor agitation retardation, no gait disturbance - Constitutional no acute distress - Routine HEENT Exam Head: Present: normocephalic, atraumatic Eye: Present: EOMI, PERRL ENT: Present: mucous membranes moist Mental Status Examination Appearance: Appropriate Consciousness: Alert Orientation: x4 Motor Activity: Normal gait Speech: Unremarkable Language: Adequate Fund of Knowledge: Adequate Attention and Concentration: Adequate Memory: Unremarkable Mood: Sad Affect: Sad Thought Process & Associations: Intact Thought Content: Appropriate Hallucination Type: None Delusion Type: None Suicidal Ideation: Yes Suicidal Plan: Yes Suicidal Intention: No Homicidal Ideation: No Homicidal Plan: No Homicidal Intention: No Insight: Poor Judgment: Poor Assessment and Plan - Assessment (1) Bipolar depression Code(s): F31.30 - Bipolar disorder, current episode depressed, mild or moderate severity, unspecified Status: Acute - Plan Plan: Estimated LOS: [] days On my psychiatric evaluation today the patient presents with active suicidal ideation with a plan of overdosing. He reports increased symptomatology of depression in the last days in the context of breakup with girlfriend, losing his job, financial problems, noncompliant with psychotropics. He reports increased sense of anhedonia, hopelessness, helplessness, worthlessness, lack of enjoyment, lack of sleep, low energy, generalized pessimism and persistent suicidal ideation with a plan of overdosing. The patient has a psychiatric history of bipolar disorder, previous suicide attempt, [facility] hospital[facility], he has been on Latuda and Wellbutrin, but he has not been compliant for at least 3 weeks. Patient has elevated risk of danger to self at the moment, he would be admitted in psychiatry for stabilization and safety. I will restart the Wellbutrin at 75 mg twice daily, Latuda 20 mg daily. Brief supportive psychotherapy provided. Justification for Continued Inpatient Stay: To be admitted in psychiatry.
[2018-03-25] MEDS ORDERED: buPROPion 150 MG 12 HR Tablet PO SCH (11:00)
--- NOTE | 2018-03-25 11:08 | ECG ---
Date Performed: 03/24/2018 Time Performed: 16:21:51 PTAGE: 43 years EKG: Sinus rhythm NORMAL ECG NO PREVIOUS TRACING DOCTOR: Lambert Bonilla Interpretating Date/Time 03/25/2018 11:07:40
--- NOTE | 2018-03-25 13:21 | P.PN ---
Subjective Interval history: Patient is seen lying in bed. Sitter is present at bedside. Patient tells me that he does continue to have a lot of sadness and depression and that he would likely harm himself if released. He denies any ill effects from overdose-no chest pain or shortness of breath. No nausea vomiting or diarrhea. no dizziness or syncope. Physical Exam Vital signs: Vital Signs 03/24/18 16:18 03/24/18 19:14 03/24/18 21:57 Temperature 97.8 F Pulse Rate 98 H 82 78 Respiratory Rate 18 16 16 Blood Pressure 144/88 H 143/89 H 143/91 H Pulse Oximetry 99 98 99 03/24/18 23:26 03/25/18 00:00 03/25/18 04:00 Temperature Pulse Rate 71 73 66 Respiratory Rate 16 Blood Pressure 135/86 Pulse Oximetry 99 03/25/18 07:47 03/25/18 08:00 03/25/18 11:53 Temperature 98.3 F 99.1 F Pulse Rate 72 82 83 Respiratory Rate 16 12 Blood Pressure 127/83 125/79 Pulse Oximetry 99 99 Intake & Output 03/24/18 03/25/18 03/25/18 18:59 06:59 18:59 Output Total 300 / 300 Balance -300 / -300 Weight 74.843 kg 74.389 kg Output: Urine 300 / 300 Other: Date of Last Bowel Movement 03/23/18 03/24/18 Narrative: GENERAL: Well-nourished, well-developed adult male in no obvious distress. SKIN: Warm and dry. HEAD: Atraumatic. Normocephalic. CARDIOVASCULAR: Regular rate and rhythm. RESPIRATORY: No accessory muscle use. Clear to auscultation. Breath sounds equal bilaterally. GASTROINTESTINAL: Abdomen soft, non-tender, non-distended. Positive bowel sounds. MUSCULOSKELETAL: Extremities without clubbing, cyanosis, or edema. No obvious deformities. NEUROLOGICAL: Awake and alert. No obvious cranial nerve deficits. Motor grossly within normal limits. Normal speech. PSYCHIATRIC: Depressed Results - Labs CBC & Chem 7: 03/25/18 05:25 03/25/18 05:25 Laboratory Results - last 24 hr 03/24/18 03/24/18 03/24/18 16:26 16:26 16:26 WBC 9.3 RBC 5.37 Hgb 15.1 Hct 43.9 MCV 81.7 MCH 28.1 MCHC 34.4 RDW 14.5 Plt Count 314 MPV 8.4 Prelim Diff (Auto) Slide review pending Neut % (Auto) 65.2 Lymph % (Auto) 26.6 [place] % (Auto) 4.5 Eos % (Auto) 2.2 Baso % (Auto) 1.5 Neut # (Auto) 6.1 Lymph # (Auto) 2.5 [place] # (Auto) 0.4 Eos # (Auto) 0.2 Baso # (Auto) 0.1 WBC Differential . Diff Scan Auto diff confirmed Differential Comment . Sodium 138 Potassium 3.8 Chloride 103 Carbon Dioxide 25.4 Anion Gap 10 BUN 7 Creatinine 1.13 Estimated GFR 71 L Random Glucose 92 Calcium 9.5 Total Bilirubin 0.3 AST 25 ALT 30 Alkaline Phosphatase 99 Total Creatine Kinase 121 Total Protein 7.5 Albumin 3.9 TSH 0.247 L Salicylates Less than 1.7 L Urine Opiates Screen Acetaminophen Less than 2.0 L Ur Barbiturates Screen Ur Amphetamines Screen U Benzodiazepines Scrn Urine Cocaine Screen U Cannabinoids Screen Serum Alcohol Less than 3 03/24/18 03/25/18 03/25/18 16:26 05:25 05:25 WBC 9.4 RBC 5.11 Hgb 14.3 Hct 42.1 MCV 82.3 MCH 27.9 MCHC 33.9 RDW 14.8 Plt Count 299 MPV 7.9 Prelim Diff (Auto) Neut % (Auto) 52.3 Lymph % (Auto) 39.4 [place] % (Auto) 4.4 Eos % (Auto) 3.1 Baso % (Auto) 0.8 Neut # (Auto) 4.9 Lymph # (Auto) 3.7 [place] # (Auto) 0.4 Eos # (Auto) 0.3 Baso # (Auto) 0.1 WBC Differential . Diff Scan Differential Comment Auto diff final Sodium 142 Potassium 3.6 Chloride 103 Carbon Dioxide 29.9 Anion Gap 9 BUN 9 Creatinine 1.15 Estimated GFR 69 L Random Glucose 80 Calcium 8.5 D Total Bilirubin 0.2 AST 17 ALT 26 Alkaline Phosphatase 95 Total Creatine Kinase Total Protein 6.9 D Albumin 3.5 TSH Salicylates Urine Opiates Screen Neg Acetaminophen Ur Barbiturates Screen Neg Ur Amphetamines Screen Neg U Benzodiazepines Scrn Neg Urine Cocaine Screen Neg U Cannabinoids Screen Neg Serum Alcohol - Imaging Impressions Chest X-Ray 03/24/18 16:20 CONCLUSION: No acute cardiopulmonary disease. Assessment and Plan - Plan Assessment/plan: 1. Intentional overdose/suicidal ideation/hallucinations Patient with known history of bipolar disorder, not currently taking his medications Poison control contacted for doxylamine overdose, recommend monitoring and supportive care/ Sitter Psychiatry consulted, appreciate recommendations Patient remains actively suicidal at this time 2. Bipolar disorder Appreciate psychiatry recommendations Patient is medically cleared for discharge to psychiatric unit.
--- NOTE | 2018-03-25 14:10 | P.DS ---
Date of admission: 03/24/18 19:19 Primary care physician: [facility] Attending physician on discharge: Sebastien Domínguez Anticipated date of discharge: 03/25/18 Brief History from admission: 43-year-old male with a past medical history significant for bipolar disorder and 2 previous suicide attempts in the past reports to the emergency department for the evaluation of an intentional overdose. The patient reports that he has been depressed for several days now. He reports a psychotic episode on where he thought he was talking to his best friend and his girlfriend however they were not there. He states he has had psychotic episodes in the past. He is supposed to be on bipolar medication however has not taken any in 2 weeks. He cannot remember the name of his psychiatrist. The patient states he had been feeling depressed and took 20-30 [id number] sleeping pills ( doxylamine succinate) with the intention of not waking up. He denies any chest pain or shortness of breath. No abdominal pain. No nausea/vomiting/diarrhea. No fever/chills. The patient reports he would still like to . DS: Diagnosis - Discharge Diagnosis (1) Drug overdose Status: Resolved (2) Suicide attempt Status: Acute (3) Bipolar depression Status: Chronic DS: Summary Hospital Course: Patient is a 43-year-old male with a past history of bipolar disorder and depression who was admitted under [place] [facility] for overdose on Unasyn. He does endorse increasing depression and suicidal ideation. Also has been not taking his medications for at least several weeks. Vitals and labs generally normal. No medical concerns due to overdose. Will transfer to [facility] due to continued suicidal ideation. - Time Spent with Patient Total time spent providing and/or coordinating discharge services: Less than 30 minutes - Quality: VTE Deep Vein Thrombosis/Pulmonary Embolism Present on Admission: No Exam Vital signs: Vital Signs 03/24/18 16:18 03/24/18 19:14 03/24/18 21:57 Temperature 97.8 F Pulse Rate 98 H 82 78 Respiratory Rate 18 16 16 Blood Pressure 144/88 H 143/89 H 143/91 H Pulse Oximetry 99 98 99 03/24/18 23:26 03/25/18 00:00 03/25/18 04:00 Temperature Pulse Rate 71 73 66 Respiratory Rate 16 Blood Pressure 135/86 Pulse Oximetry 99 03/25/18 07:47 03/25/18 08:00 03/25/18 11:53 Temperature 98.3 F 99.1 F Pulse Rate 72 82 83 Respiratory Rate 16 12 Blood Pressure 127/83 125/79 Pulse Oximetry 99 99 Intake & Output 03/24/18 03/25/18 03/25/18 18:59 06:59 18:59 Output Total 300 / 300 Balance -300 / -300 Weight 74.843 kg 74.389 kg Output: Urine 300 / 300 Other: Date of Last Bowel Movement 03/23/18 03/24/18 Narrative: GENERAL: Well-nourished, well-developed adult male in no obvious distress. SKIN: Warm and dry. HEAD: Atraumatic. Normocephalic. CARDIOVASCULAR: Regular rate and rhythm. RESPIRATORY: No accessory muscle use. Clear to auscultation. Breath sounds equal bilaterally. GASTROINTESTINAL: Abdomen soft, non-tender, non-distended. Positive bowel sounds. MUSCULOSKELETAL: Extremities without clubbing, cyanosis, or edema. No obvious deformities. NEUROLOGICAL: Awake and alert. No obvious cranial nerve deficits. Motor grossly within normal limits. Normal speech. PSYCHIATRIC: Depressed Results Procedures completed during hospitalization: none Labs on day of discharge: Labs from last 24 hours 03/25/18 03/25/18 03/24/18 05:25 05:25 16:26 WBC 9.4 RBC 5.11 Hgb 14.3 Hct 42.1 MCV 82.3 MCH 27.9 MCHC 33.9 RDW 14.8 Plt Count 299 MPV 7.9 Prelim Diff (Auto) Neut % (Auto) 52.3 Lymph % (Auto) 39.4 [place] % (Auto) 4.4 Eos % (Auto) 3.1 Baso % (Auto) 0.8 Neut # (Auto) 4.9 Lymph # (Auto) 3.7 [place] # (Auto) 0.4 Eos # (Auto) 0.3 Baso # (Auto) 0.1 WBC Differential . Diff Scan Differential Comment Auto diff final Sodium 142 Potassium 3.6 Chloride 103 Carbon Dioxide 29.9 Anion Gap 9 BUN 9 Creatinine 1.15 Estimated GFR 69 L Random Glucose 80 Calcium 8.5 D Total Bilirubin 0.2 AST 17 ALT 26 Alkaline Phosphatase 95 Total Creatine Kinase Total Protein 6.9 D Albumin 3.5 TSH Salicylates Urine Opiates Screen Neg Acetaminophen Ur Barbiturates Screen Neg Ur Amphetamines Screen Neg U Benzodiazepines Scrn Neg Urine Cocaine Screen Neg U Cannabinoids Screen Neg Serum Alcohol 03/24/18 03/24/18 03/24/18 16:26 16:26 16:26 WBC 9.3 RBC 5.37 Hgb 15.1 Hct 43.9 MCV 81.7 MCH 28.1 MCHC 34.4 RDW 14.5 Plt Count 314 MPV 8.4 Prelim Diff (Auto) Slide review pending Neut % (Auto) 65.2 Lymph % (Auto) 26.6 [place] % (Auto) 4.5 Eos % (Auto) 2.2 Baso % (Auto) 1.5 Neut # (Auto) 6.1 Lymph # (Auto) 2.5 [place] # (Auto) 0.4 Eos # (Auto) 0.2 Baso # (Auto) 0.1 WBC Differential . Diff Scan Auto diff confirmed Differential Comment . Sodium 138 Potassium 3.8 Chloride 103 Carbon Dioxide 25.4 Anion Gap 10 BUN 7 Creatinine 1.13 Estimated GFR 71 L Random Glucose 92 Calcium 9.5 Total Bilirubin 0.3 AST 25 ALT 30 Alkaline Phosphatase 99 Total Creatine Kinase 121 Total Protein 7.5 Albumin 3.9 TSH 0.247 L Salicylates Less than 1.7 L Urine Opiates Screen Acetaminophen Less than 2.0 L Ur Barbiturates Screen Ur Amphetamines Screen U Benzodiazepines Scrn Urine Cocaine Screen U Cannabinoids Screen Serum Alcohol Less than 3 - Impressions ITS Impressions Chest X-Ray 03/24/18 16:20 CONCLUSION: No acute cardiopulmonary disease. Discharge Plan - Discharge Disposition Patient Disposition: 65 [facility] - Discharge Condition Condition: Stable - Discharge Order Discharge Orders: Discharge Order (Routine); Ordered 03/25/18 Ordered By: Alma Gunderson - Physicians Team Primary Care Provider: [facility] Attending Provider: Sebastien Domínguez Other Providers: Jason Centeno MD
[2018-03-25 15:43] VITALS: BP 128/74; PULSE 85; RESP 16; TEMP 98.8; O2SAT 98
== END 2018-03-25 17:53 ==
LOC: NEPC 16:08 → NEDA 16:08 → NEPFCDU 22:39
PROVIDERS: ADMIT Internal Medicine; ATTEND Internal Medicine

== ENCOUNTER 2018-03-25 16:02 | Inpatient (IN) ==
[2018-03-25] MEDS ORDERED: Aluminum/Magnesium/Simethacone Susp 30 ML UDC PO PRN (22:49)
[2018-03-25] MEDS ORDERED: Acetaminophen 325 MG Tablet PO PRN (23:01)
--- NOTE | 2018-03-26 09:04 | P.HPPSY ---
Provisional Diagnosis Admission Date: March 25, 2018 17:59 [place] I.: 1. Bipolar disorder, presently depressed [place] II.: Deferred Competence Certification of Person's Competence To Provide Express and Informed Consent I have personally examined Javan Granger JR, a person being served at [facility] on, March 26, 2018 0904. Express and informed consent means consent voluntarily given in writing, by a competent person, after sufficient explanation and disclosure of the subject matter involved to enable the person to make a knowing and willful decision without any element of force, fraud, deceit, duress, or other form of constraint or coercion. This person is 18 years of age or older, is not now known to be incompetent to consent to treatment with a guardian advocate, and does not have a health care surrogate or proxy currently making medical treatment decisions. I have found this person to be one of the following: [X] Competent to provide express and informed consent, as defined above, for voluntary admission to this facility and is competent to provide express and informed consent for treatment. He/she has the consistent capacity to make well reasoned, willful, and knowing decisions concerning his or her medical or mental health treatment. The person fully and consistently understands the purpose of the admission for examination/placement and is fully capable of personally exercising all rights assured under [place] [] Incompetent to provide express and informed consent to voluntary admission, and this is incompetent to provide express and informed consent to treatment. The person must be transferred to involuntary status and a petition for a guardian advocate filed with the Circuit Court. [] Refusing to provide express and informed consent to voluntary admission but is competent to provide express and informed consent for treatment. The person must be discharged or transferred to involuntary status. Form shall be completed within 24 hours of a person's arrival at the receiving facility and filed in the clinical record of each person: 1. Admitted on a voluntary basis 2. Permitted to provide express and informed consent to his/her own treatment 3. Allowed to transfer from involuntary to voluntary status 4. Prior to permitting a person to consent to his or her own treatment after having been previously found incompetent to consent to treatment. History of Present Illness Capacity: Has capacity Chief Complaint: Overdose History of Present Illness: Mr. Granger is a 43 year-old male with a reported history of Bipolar disorder who presents in transfer from the medical floor under a [place] act. Patient presented initially with an wtss-[id number]-[id number] hypnotic overdose and was medically hospitalized for management of this issue. Patient was seen in psychiatric consultation on the medical floor by Dr. Centeno. Reviewing the electronic medical record, I see no previous psychiatric contact within our system. Patient seen and examined with nurse. Chart reviewed. Case discussed with nursing staff. On my examination today, the patient cites relationship problems with his girlfriend as well as passing of his father and dog as stressors leading to his presenting overdose. He says that he made his overdose impulsively "because I could not see a way forward." He denies any ongoing suicidal ideation at this time having survived his overdose saying "something wants me to keep going. He also says that he wants to live for his mother. He does admit to ongoing low mood however along with lack of focus and racing thoughts. The patient does not describe any psychotic material presently but does say that he has experienced some audiovisual hallucinations in the past including seeing his girlfriend when she was not there. Remainder of the psychiatric ROS is negative. No acute physical complaints. Past psychiatric history: The patient reports a history of bipolar disorder. He follows psychiatrically through the [facility]. He is prescribed Wellbutrin and Latuda. He denies any history of eating disorder or seizure. Most recent psychiatric admission was at the [facility] in [place]. He reports 1 previous suicide attempt by aborted gunshot. He reports poor tolerability to Depakote. Family history: The patient denies family history of serious mental illness or suicide. Chemical dependency history: The patient denies any abuse of drugs or alcohol. Social history: The patient reports that he had been residing with his girlfriend but now is having some housing issues following their breakup. 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 He served in the [employer] but denies any history of combat or other trauma. He denies any access to guns or firearms. Past medical history: The patient denies any medical issues. - Inpatient Certification I certify that the inpatient services were ordered in accordance with Medicare regulations governing the order. This includes certification that hospital inpatient services are reasonable and necessary and in the case of services not specified as inpatient-only under 42 CFR 419.22(n), that they are appropriately provided as inpatient services in accordance to with the 2-midnight benchmark under 43 CFR 412.3(e) I certify that inpatient psychiatric hospital services are medically necessary. Evaluation and treatment and/or diagnostic testing are expected to improve the patient's condition. The patient needs on a daily basis, active treatment furnished directly by or requiring the supervision of inpatient psychiatric facility personnel. Estimated Total Length of Stay (Days): 7 Plans for Post Hospital Care: Not yet determined Review of Systems All other systems reviewed negative except as stated in HPI [facility] - History History Provided By: Patient - Medical History Medical History: Medical History (Last Reviewed 03/24/18 @ 19:59 by Elodia Durham MD) Anxiety Bipolar 1 disorder - Surgical History Surgical History: Surgical History (Last Updated 03/24/18 @ 20:00 by Elodia Durham MD) History of back surgery - Family History Family History: Family History (Last Updated 03/24/18 @ 20:00 by Elodia Durham MD) Other Coronary artery disease - Tobacco History Second Hand Smoke Exposure: No Tobacco Use In Past 30 Days: No Smoking Status: Former smoker Tobacco Type: Cigarettes - Alcohol History How Often Do You Have a Drink Containing Alcohol: Never - Substance Use History Substance History: Past History - Substance Use Type Crack/Cocaine Route Used: Inhalation Reason for Use: Calm Down Comment: OCCASIONAL USE - Immunization History Tetanus Immunization: <5 Years Hx Influenza Vaccine This Season: No Quality Measures - Patient Strengths Patient's strengths (minimum of 2): In a monitored setting. Verbally fluent. Medications and Allergies Active Medications: Active Medications Acetaminophen (Tylenol) 650 mg PO Q4H PRN PRN Reason: PAIN 1-5 OR TEMP > 101 F Al Hydrox/Mg Hydrox/Simethicone (Mag-Al Plus Susp Liq) 30 ml PO Q6H PRN PRN Reason: DYSPEPSIA Al Hydroxide/Mg Hydroxide (Milk Of Magnesia Liq) 30 ml PO Q12H PRN PRN Reason: Mild Constipation Diphenhydramine HCl (Benadryl) 50 mg PO HS PRN PRN Reason: INSOMNIA Diphenhydramine HCl (Benadryl Inj) 50 mg IM HS PRN PRN Reason: INSOMNIA Hydroxyzine HCl (Atarax) 50 mg PO Q6H PRN PRN Reason: ANXIETY Nicotine (Habitrol 21 Mg Patch.24 Hr) 1 patch T-DERMAL DAILY NANCI Allergies Allergy/AdvReac Type Severity Reaction Status Date / Time sumatriptan AdvReac Intermediate Headache Verified 03/25/18 09:46 Home Medications Medication Instructions Recorded Confirmed Type bupropion HCl [Wellbutrin XL] See Label Instructions .ROUTE 03/24/18 03/24/18 History .COMPLEX lurasidone [Latuda] See Label Instructions .ROUTE 03/24/18 03/24/18 History .COMPLEX Results - Labs CBC & Chem 7: 03/26/18 08:10 Labs: Labs reviewed: Laboratory Tests 03/24/18 03/24/18 03/25/18 16:26 16:26 05:25 WBC 9.4 Hgb 14.3 Plt Count 299 Sodium Potassium Chloride Carbon Dioxide Anion Gap BUN Creatinine Estimated GFR AST ALT Alkaline Phosphatase TSH 0.247 L Free T4 Urine Opiates Screen Neg Ur Barbiturates Screen Neg Ur Amphetamines Screen Neg U Benzodiazepines Scrn Neg Urine Cocaine Screen Neg U Cannabinoids Screen Neg Serum Alcohol Less than 3 03/25/18 03/26/18 03/26/18 05:25 08:10 08:10 WBC Hgb Plt Count Sodium 140 Potassium 4.1 Chloride 102 Carbon Dioxide 30.6 Anion Gap 7 BUN 12 Creatinine 1.14 Estimated GFR 70 L AST 17 ALT 26 Alkaline Phosphatase 95 TSH Free T4 0.86 Urine Opiates Screen Ur Barbiturates Screen Ur Amphetamines Screen U Benzodiazepines Scrn Urine Cocaine Screen U Cannabinoids Screen Serum Alcohol EKG read as normal sinus rhythm with a QTC of 397 ms. Exam Vital signs: Vital Signs 03/25/18 18:46 03/26/18 06:12 Temperature 98.6 F 97.2 F L Pulse Rate 96 H 73 Respiratory Rate 18 16 Blood Pressure 135/76 102/63 Pulse Oximetry 100 Intake & Output 03/25/18 03/26/18 03/26/18 18:59 06:59 18:59 Weight 73.6 kg 73.1 kg Other: Weight On Admission 73.6 kg Narrative: Physical examination completed by hospitalist provider on the medical floor. On my evaluation today, the patient appears to be in no acute physical distress. No motor abnormalities noted. Labs and vital signs reviewed. Mental Status Examination Appearance: Appropriate Consciousness: Alert Orientation: Person, Place (At least) Motor Activity: Other (No motor abnormalities noted) Speech: Unremarkable Language: Adequate Fund of Knowledge: Adequate Attention and Concentration: Adequate Memory: Unremarkable (Grossly intact on clinical exam) Mood: Sad Affect: Blunt Thought Process & Associations: Intact, Logical, Linear Thought Content: Appropriate Hallucination Type: None Delusion Type: None Suicidal Ideation: No Suicidal Plan: No Suicidal Intention: No Homicidal Ideation: No Homicidal Plan: No Homicidal Intention: No Insight: Fair Judgment: Impulsive Assessment and Plan - Assessment (1) Bipolar depression Code(s): F31.30 - Bipolar disorder, current episode depressed, mild or moderate severity, unspecified Status: Chronic - Plan Plan: 43-year-old male with psychiatric history as detailed above who presents in transfer from the medical floor following an fswa-nsx-afcwzuo hypnotic overdose. On my evaluation today, the patient endorses ongoing dysphoria but denies suicidal ideation. He endorses multiple psychosocial stressors however and warrants psychiatric hospitalization for monitoring for any ongoing impairments in safety as well as for medication adjustment with the goal of mood stabilization. Admit inpatient. Voluntary status. Continue Wellbutrin 150mg daily (SR formulation on formulary here). I will titrate patient's Latuda to 40mg with dinner for mood stabilization. Atarax as needed for anxiety. Melatonin as needed for sleep. R/B/A for medications discussed with patient. Vitals every shift. Counselor to see. Collateral information. Disposition planning. Estimated length of stay: 5-7 days. Justification for Continued Inpatient Stay: See above. Discharge Planning: Pending psychiatric stabilization. Request Healthcare Surrogate/Guardian Advocate?: No
[2018-03-26] MEDS ORDERED: Melatonin 5 MG Tablet PO PRN (09:07)
[2018-03-26 09:25] LABS: Calcium 8.7 mg/dL (8.5-10.1); Carbon Dioxide 30.6 meq/L (21.0-32.0); Potassium 4.1 meq/L (3.5-5.1)
[2018-03-26 09:32] LABS: Chol/HDL Ratio 2.92 Ratio; HDL Cholesterol 44.8 mg/dL (40.0-60.0)
[2018-03-26 12:36] LABS: Hemoglobin A1c 5.3 % (4.3-6.0)
[2018-03-26] MEDS: buPROPion 150 MG 12 HR Tablet PO SCH (17:19)
[2018-03-27] MEDS: buPROPion 150 MG 12 HR Tablet PO SCH (08:54)
--- NOTE | 2018-03-27 09:30 | P.TTN ---
- Patient Problems Problems: 1. Discharge planning 2. Medication compliance 3. Knowledge deficit 4. Lack of coping skills - Progress Toward Goals Provider Present: Dr. Ann Philippe (Patient arrived to [facility] for an overdose, patient is followed at [facility] with a history of bipolar disorder. Dr. Philippe is titrating medications.) Psychiatric Counselors Present: Jair Bernard Jr., [facility] (Counselor will meet with the patient to discuss a discharge disposition.) Group Spec/RT/OT/WOODS Present: PEGGY Barclay (Patient attends select groups and is appropriate.) - Documentation Teaching Recipient: Patient
--- NOTE | 2018-03-27 09:56 | P.PNPSY ---
Subjective Chief Complaint: Overdose Remarks: Patient seen and examined with nurse. Chart reviewed. Case discussed with nursing staff. No behavioral issues noted overnight. Case discussed in treatment team. On my examination today, the patient describes his mood as " not too bad." He denies any ongoing suicidal ideation. Denies hopeless or worthless feelings. Slept okay last night. Denies audiovisual hallucinations. Denies side effects from medications. No physical complaints. Vital Signs Temp Pulse Resp BP Pulse Ox 03/27/18 06:35 98.0 F 68 110/76 98 03/26/18 17:28 98.4 F 72 18 115/66 98 Laboratory Results - last 24 hr 03/26/18 03/26/18 08:10 08:10 Hemoglobin A1c 5.3 Free T4 0.86 Labs reviewed. Review of Systems All other systems reviewed negative except as stated in HPI Mental Status Examination Appearance: Appropriate Consciousness: Alert Orientation: Person, Place (At least) Motor Activity: Other (No motoric abnormalities noted) Speech: Unremarkable Language: Adequate Fund of Knowledge: Adequate Attention and Concentration: Adequate Memory: Unremarkable (Grossly intact on clinical exam) Mood: Other (Depressed but improving) Affect: Blunt Thought Process & Associations: Intact, Logical, Linear Thought Content: Appropriate Hallucination Type: None Delusion Type: None Suicidal Ideation: No Suicidal Plan: No Suicidal Intention: No Homicidal Ideation: No Homicidal Plan: No Homicidal Intention: No Insight: Fair Judgment: Impulsive Assessment and Plan - Assessment (1) Bipolar depression Code(s): F31.30 - Bipolar disorder, current episode depressed, mild or moderate severity, unspecified Status: Chronic - Plan Plan: Titrate Latuda over the weekend to 60 mg with dinner for additional mood stabilization. Transfer to 2600 unit as patient is denying suicidal ideation and has presented no behavioral problem. Continue other medications and care as ordered. Justification for Continued Inpatient Stay: Medication changes. Monitoring for impairment in safety. Risk for decompensation in less restrictive environment. Discharge Planning: Pending psychiatric stabilization. Request Healthcare Surrogate/Guardian Advocate?: No
[2018-03-28] MEDS: buPROPion 150 MG 12 HR Tablet PO SCH (08:55)
--- NOTE | 2018-03-28 18:50 | P.PNPSY ---
Subjective Chief Complaint: Overdose Remarks: Reviewed electronic medical records and discussed case with staff. Follow-up was conducted in the hallway with FAHAD Liu present. Patient seems slightly hypomanic reports his mood as "up and down". He does report he feels "a little improvement" on the medication. He somewhat anxious after speaking with his mother about his future. It appears that she thinks he should go to the [place] [facility] and he. He does report that he sleeping well and his appetite is been good. He will be moved to the [address] Philippe request in his note. Mental Status Examination Appearance: Appropriate Consciousness: Alert Orientation: Person, Place (At least) Motor Activity: Other (No motoric abnormalities noted) Speech: Unremarkable Language: Adequate Fund of Knowledge: Adequate Attention and Concentration: Adequate Memory: Unremarkable (Grossly intact on clinical exam) Mood: Other (Depressed but improving) Affect: Blunt Thought Process & Associations: Intact, Logical, Linear Thought Content: Appropriate Hallucination Type: None Delusion Type: None Suicidal Ideation: No Suicidal Plan: No Suicidal Intention: No Homicidal Ideation: No Homicidal Plan: No Homicidal Intention: No Insight: Fair Judgment: Impulsive Assessment and Plan - Assessment (1) Bipolar depression Code(s): F31.30 - Bipolar disorder, current episode depressed, mild or moderate severity, unspecified Status: Chronic - Plan Plan: Patient will be reevaluated Friday by the attending psychiatrist. Continue with current treatment plan. Justification for Continued Inpatient Stay: Moving this patient to a less restrictive environment would likely result in decompensation. Request Healthcare Surrogate/Guardian Advocate?: No
[2018-03-29] MEDS: buPROPion 150 MG 12 HR Tablet PO SCH (08:28)
--- NOTE | 2018-03-29 17:03 | P.PNPSY ---
Subjective Chief Complaint: Overdose Remarks: Reviewed electronic medical records and discussed case with staff. Follow-up was conducted in patient's room with FAHAD Wood. Patient states that he is better since he re-established his medication. Racing thoughts have resolved and he feels more focused. He has been in touch with his family and girlfriend and they are very understanding. 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 He is eating and sleeping well. Voices no concerns. Review of Systems All other systems reviewed negative except as stated in HPI Mental Status Examination Appearance: Appropriate Consciousness: Alert Orientation: Person, Place (At least) Motor Activity: Other (No motoric abnormalities noted) Speech: Unremarkable Language: Adequate Fund of Knowledge: Adequate Attention and Concentration: Adequate Memory: Unremarkable (Grossly intact on clinical exam) Mood: Other (Depressed but improving) Affect: Blunt Thought Process & Associations: Intact, Logical, Linear Thought Content: Appropriate Hallucination Type: None Delusion Type: None Suicidal Ideation: No Suicidal Plan: No Suicidal Intention: No Homicidal Ideation: No Homicidal Plan: No Homicidal Intention: No Insight: Fair Judgment: Impulsive Assessment and Plan - Assessment (1) Bipolar depression Code(s): F31.30 - Bipolar disorder, current episode depressed, mild or moderate severity, unspecified Status: Chronic - Plan Plan: Patient will be reevaluated Friday by the attending psychiatrist. Continue with current treatment plan. Justification for Continued Inpatient Stay: Moving patient to a less restrictive environment may result in his decompensation. Request Healthcare Surrogate/Guardian Advocate?: No
[2018-03-30 05:01] VITALS: BP 118/58; PULSE 68; RESP 18; TEMP 97.4; O2SAT 100
[2018-03-30] MEDS: buPROPion 150 MG 12 HR Tablet PO SCH (08:29)
--- NOTE | 2018-03-30 13:42 | P.DSPSY ---
Psychiatry Discharge Summary Inpatient Psychiatric care?: Yes Advance Directives: No Mental Health Advance Directive: No Health Care Proxy: No - Admission Admission Date: March 25, 2018 17:59 - Admission Diagnosis (1) Bipolar depression Code(s): F31.30 - Bipolar disorder, current episode depressed, mild or moderate severity, unspecified Brief History: Mr. Granger is a 43 year-old male with a reported history of Bipolar disorder who presents in transfer from the medical floor under a [place] act. Patient presented initially with an neca-sbh-jmywsxq hypnotic overdose and was medically hospitalized for management of this issue. Patient was seen in psychiatric consultation on the medical floor by Dr. Centeno. Reviewing the electronic medical record, I see no previous psychiatric contact within our system. Patient seen and examined with nurse. Chart reviewed. Case discussed with nursing staff. On my examination today, the patient cites relationship problems with his girlfriend as well as passing of his father and dog as stressors leading to his presenting overdose. He says that he made his overdose impulsively "because I could not see a way forward." He denies any ongoing suicidal ideation at this time having survived his overdose saying "something wants me to keep going. He also says that he wants to live for his mother. He does admit to ongoing low mood however along with lack of focus and racing thoughts. The patient does not describe any psychotic material presently but does say that he has experienced some audiovisual hallucinations in the past including seeing his girlfriend when she was not there. Remainder of the psychiatric ROS is negative. No acute physical complaints. Tobacco Use In Past 30 Days: No How Often Do You Have a Drink Containing Alcohol: Never Hospital Course: Patient was admitted to a locked, inpatient psychiatric unit. Appropriate precautions were in place throughout patient's hospital stay. Patient was seen and examined on the unit by psychiatry and also visited by counselor. Psychotropic medications were adjusted. Patient tolerated medication changes well without side effects. Patient had improvement in presenting psychiatric symptomatology during the course of his hospital stay. There was no evidence of any suicidality or homicidality on the inpatient unit. There was no evidence of self-care deficit. On the day of discharge: Patient seen and examined with nurse. Chart reviewed. Case discussed with nursing staff who reports the patient was no behavioral issue overnight and has been social and appropriate with peers. Case discussed with counselor. On my examination today , the patient is requesting discharge from the inpatient psychiatric unit today. Patient reports that he feels much improved and says that he feels "really good. I have not been this clear in 4-6 months." Mood is improved versus admission, and I can elicit no depressive or hypomanic/manic symptoms. 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 He denies any suicidal or homicidal ideation, intent or plan. He denies any audiovisual hallucinations. I can elicit no delusional material. There is no evidence of impairment in reality construction. He denies any side effects from medications. He has no physical complaints. Suicide and violence risk assessment on day of discharge both suggest lower imminent risk from mental illness, and the patient's level of function is adequate for outpatient care. Patient has maximized benefit from this inpatient psychiatric hospital stay. He will be discharged today with psychiatric follow-up as arranged by the counselor. Patient is also to follow up with primary care. I have counseled the patient regarding warning signs for need to return to the psychiatric emergency room as part of a general safety plan. - Discharge Discharge Date: 03/30/18 - Discharge Diagnosis (1) Bipolar affective disorder, depressed, in remission Diagnosis: Principal Code(s): F31.70 - Bipolar disorder, currently in remission, most recent episode unspecified Status: Acute Discharge Disposition: Home - Discharge Instructions Discharge Diet: Regular Diet Activities You Can Perform: Weight Bearing As Tolerat - Discharge Time <= 30 minutes Mental Status Examination Appearance: Appropriate Consciousness: Alert Orientation: x4 Motor Activity: Normal gait, Other (No abnormal motor movements noted) Speech: Unremarkable Language: Adequate Fund of Knowledge: Adequate Attention and Concentration: Adequate Memory: Unremarkable (Grossly intact on clinical exam) Mood: Appropriate Affect: Appropriate, Euthymic Thought Process & Associations: Intact, Logical, Goal directed, Linear Thought Content: Appropriate Hallucination Type: None Delusion Type: None Suicidal Ideation: No Suicidal Plan: No Suicidal Intention: No Homicidal Ideation: No Homicidal Plan: No Homicidal Intention: No Mental Status Exam Remarks: Insight and judgment are fair Discharge/Advance Care Plan - Results Vital Signs: Last Vital Signs Temp 97.4 F L 03/30/18 05:00 Pulse 68 03/30/18 05:00 Resp 18 03/30/18 05:00 BP 118/58 L 03/30/18 05:00 Pulse Ox 100 03/30/18 05:00 Lab Results: Laboratory Results Hemoglobin A1c 5.3 % (4.3-6.0) 03/26/18 08:10 Triglycerides 129 mg/dL (42-150) 03/26/18 08:10 Cholesterol 131 mg/dL (120-200) 03/26/18 08:10 LDL Cholesterol, Calc 60 mg/dL (0-99) 03/26/18 08:10 HDL Cholesterol 44.8 mg/dL (40.0-60.0) 03/26/18 08:10 Free T4 0.86 ng/dL (0.76-1.46) 03/26/18 08:10 Summary of Procedures: None done Pending Results: None - Medications Number of antipsychotic medications at discharge: 1 - Discharge Care Plan Goals to Promote Your Health: * To prevent worsening of your condition and complications * To maintain your health at the optimal level Directions to Meet Your Goals: Take your medications as prescribed Follow your dietary instruction Follow activity as directed Keep your appointments as scheduled Take your immunizations and boosters as scheduled If your symptoms worsen call your PCP, if no PCP go to Urgent Care Center or Emergency Room For 06/01 questions related to your inpatient stay or results of tests pending at discharge, please contact Dr. Reagan Philippe MD at [phone] Smoking is Dangerous to Your Health. Avoid second hand smoking
== END 2018-03-30 16:11 | disposition home or self-care (01) ==
LOC: H270 17:59 → H260 03-28 22:13
PROVIDERS: ADMIT Psychiatry & Neurology Psychiatry; ATTEND Psychiatry & Neurology Psychiatry